=== PATIENT | female | born 1945 | race Asian ===

== ENCOUNTER 2022-01-04 13:32 | Inpatient (IN) | payer MEDICARE, OTHER ==
[~2022-01-04] VITALS: Ht 154.9 cm; Wt 46.5 kg
[2022-01-04] MEDS ORDERED: SODIUM CHLORIDE 0.9% 500 ML IVB ONE (14:15)
[2022-01-04 16:38] LABS: Basophils # (auto) 0.1 10 ^3/uL (0-0.2); Basophils % (auto) 0.9 % (0.0-2.0); Eosinophils # (auto) 0.1 10 ^3/uL (0-0.8); Eosinophils % (auto) 1.8 % (0.0-7.0); Hematocrit 39.1 % (36.0-46.0); Hemoglobin 12.9 g/dL (12.2-16.2); Lymphocytes # (auto) 1.8 10 ^3/uL (0.4-5.4); Lymphocytes % (auto) 21.5 % (10.0-50.0); Mean Corpuscular Hemoglobin 29.9 pg (28.0-32.0); Mean Corpuscular Hgb Conc. 33.1 g/dL (32.0-36.0); Mean Corpuscular Volume 90.2 fL (80.0-100.0); Monocytes # (auto) 0.6 10 ^3/uL (0-1.3); Monocytes % (auto) 7.4 % (0.0-12.0); Neutrophils # (auto) 5.6 10 ^3/uL (1.6-8.6); Neutrophils % (auto) 68.4 % (37.0-80.0); Red Blood Cells 4.33 10^6/uL (4.0-5.20); Red Cell Distribution Width 14.3 % (11.8-14.3); White Blood Cell 8.2 10^3/uL (4.4-10.8)
[2022-01-04 16:51] LABS: INR 0.97 (0.9-1.15); Partial Thromboplastin Time 25.6 sec (23.6-33.0)
[2022-01-04 16:55] LABS: Albumin 3.3 g/dL (3.4-5.0); Calcium 8.8 mg/dL (8.5-10.1)
[2022-01-04 17:03] LABS: BUN/Creatinine Ratio 19.4; Bilirubin, Total 0.3 mg/dL (0.2-1.0); Total Protein 8.1 g/dL (6.4-8.2)
[2022-01-04] MEDS ORDERED: IOHEXOL 300 MG/ML 100ML BOTTLE IJ ONE (17:35)
[2022-01-04] MEDS ORDERED: metroNIDAZOLE 500MG/100ML 100 ML IV ONE (20:15)
[2022-01-04 20:58] LABS: Urine Bacteria NONE SEEN /hpf (None Seen); Urine Blood 2+ /uL (Negative); Urine WBC 5 /hpf (0 - 5)
[2022-01-04 21:00] LABS: Urine Specific Gravity > 1.050 (1.001-1.035)
[2022-01-04] MEDS ORDERED: MORPHINE SULFATE INJECTION 2 MG/ML SYRG IV PRN (23:15)
[2022-01-04] MEDS ORDERED: ONDANSETRON HCL 4 MG/2 ML VIAL IV PRN (23:15)
[2022-01-04] MEDS ORDERED: PANTOPRAZOLE 40 MG/10 ML VIAL INJ IV ONE (23:15)
[2022-01-05 02:35] VITALS: BP 143/56
[2022-01-05] MEDS ORDERED: ENAL20TA8 PO (03:24)
[2022-01-05] MEDS ORDERED: RALO1TAB PO (03:24)
[2022-01-05] MEDS ORDERED: HYDR12.56 PO (03:24)
[2022-01-05 04:55] VITALS: BP 131/71
[2022-01-05] MEDS: metroNIDAZOLE 500MG/100ML 100 ML IV SCH ×3 (05:31→22:39)
[2022-01-05 05:34] LABS: Basophils # (auto) 0 10 ^3/uL (0-0.2); Basophils % (auto) 0.6 % (0.0-2.0); Eosinophils # (auto) 0.2 10 ^3/uL (0-0.8); Eosinophils % (auto) 3.3 % (0.0-7.0); Hematocrit 34.7 % (36.0-46.0); Hemoglobin 11.7 g/dL (12.2-16.2); Lymphocytes # (auto) 1.8 10 ^3/uL (0.4-5.4); Lymphocytes % (auto) 26.6 % (10.0-50.0); Mean Corpuscular Hemoglobin 30.1 pg (28.0-32.0); Mean Corpuscular Hgb Conc. 33.6 g/dL (32.0-36.0); Mean Corpuscular Volume 89.5 fL (80.0-100.0); Monocytes # (auto) 0.6 10 ^3/uL (0-1.3); Monocytes % (auto) 8.8 % (0.0-12.0); Neutrophils # (auto) 4.1 10 ^3/uL (1.6-8.6); Neutrophils % (auto) 60.7 % (37.0-80.0); Nucleated Red Blood Cells % 0.1 %; Red Blood Cells 3.87 10^6/uL (4.0-5.20); Red Cell Distribution Width 14.1 % (11.8-14.3); White Blood Cell 6.7 10^3/uL (4.4-10.8)
[2022-01-05 05:47] LABS: Albumin 2.9 g/dL (3.4-5.0); Calcium 8.3 mg/dL (8.5-10.1); Potassium 3.5 mmol/L (3.5-5.1)
[2022-01-05 05:50] LABS: BUN/Creatinine Ratio 16.7; Bilirubin, Total 0.5 mg/dL (0.2-1.0); Total Protein 6.7 g/dL (6.4-8.2)
[2022-01-05 08:30] VITALS: BP 150/74
[2022-01-05] MEDS: PANTOPRAZOLE 40 MG/10 ML VIAL INJ IV SCH ×2 (09:29→22:04)
[2022-01-05] MEDS: HCTZ 25 MG TAB PO SCH (09:30)
[2022-01-05] MEDS: ENALAPRIL MALEATE 10 MG TAB PO SCH (09:30)
[2022-01-05 12:30] VITALS: BP 120/66
[2022-01-05] MEDS ORDERED: GOLYTELY 4L KIT PO ONE (15:00)
[2022-01-05 16:30] VITALS: BP 124/61
[2022-01-05] MEDS ORDERED: CEFTRIAXONE SODIUM 2 GM in D5W 5% 50 ML IV SCH ×2 (18:00→20:00)
[2022-01-05 22:00] VITALS: BP 151/77
[2022-01-06 05:00] VITALS: BP 144/62
[2022-01-06] MEDS: metroNIDAZOLE 500MG/100ML 100 ML IV SCH (05:43)
[2022-01-06] MEDS ORDERED: SODIUM CHLORIDE LOCK 10 ML ONE (08:12)
[2022-01-06] MEDS ORDERED: LIDOCAINE VISCOUS 2% 15ML UD ONE (08:12)
[2022-01-06] MEDS ORDERED: diphenhdrAMINE HCL 50 MG/1 ML VL ONE (08:12)
[2022-01-06 08:29] VITALS: BP 152/65
[2022-01-06] MEDS: fentaNYL CITRATE 100 MCG/2 ML VL ONE ×3 (08:59→09:09)
[2022-01-06] MEDS: MIDAZOLAM HCL 5 MG/ML-1ML VIAL ONE ×3 (08:59→09:09)
[2022-01-06] MEDS ORDERED: PANTOPRAZOLE 40 MG TAB PO SCH (10:00)
[2022-01-06] MEDS: HCTZ 25 MG TAB PO SCH (11:56)
[2022-01-06] MEDS: ENALAPRIL MALEATE 10 MG TAB PO SCH (11:57)
[2022-01-06 12:16] VITALS: BP 145/71
[2022-01-06] MEDS ORDERED: PANT40TA2 PO (13:22)
[2022-01-06] MEDS ORDERED: LEVO500T31 PO (13:22)
[2022-01-06] MEDS ORDERED: METR500T PO (13:22)
[2022-01-06 16:29] VITALS: BP 120/56
== END 2022-01-06 18:11 | disposition home or self-care (01) | DRG 377 ==
LOC: ER 13:32 → EDBD 13:32 → OVERFLOW 23:04 → EAST 23:39
PROVIDERS: ADMIT Nurse Practitioner; ATTEND Internal Medicine
PROC: 0DJ08ZZ Inspection of Upper Intestinal Tract, Via Natural or Artificial Opening Endoscopic (ICD-10-PCS; principal; 2022-01-06 08:55)
PROC: 0DBE8ZX Excision of Large Intestine, Via Natural or Artificial Opening Endoscopic, Diagnostic (ICD-10-PCS; 2022-01-06 08:55)
DX: K29.71 Gastritis, unspecified, with bleeding (principal); N17.0 Acute kidney failure with tubular necrosis; K55.9 Vascular disorder of intestine, unspecified; Z68.1 Body mass index [BMI] 19.9 or less, adult; D64.9 Anemia, unspecified; E88.09 Other disorders of plasma-protein metabolism, not elsewhere classified; I10 Essential (primary) hypertension; Z20.822 Contact with and (suspected) exposure to COVID-19; Z88.0 Allergy status to penicillin
CPT/HCPCS: 36415; 71045; 74177; 80053; 81001; 85025; 85610; 85730; 86850; 86900; 86901; 93005; 96361; 96365; 96375; C9113; G0378; J0696; J2250; J2405; J3490; J7060

== ENCOUNTER 2023-02-10 11:33 | Inpatient (IN) | payer MEDICARE, OTHER ==
[~2023-02-10] VITALS: Ht 154.9 cm; Wt 46.2 kg
[~2023-02-10 11:33] MED LIST: ENAL1TAB48 PO; HYDR12.59 PO; LEVO500T31 PO; METR500T PO; PANT40TA2 PO; RALO1TAB PO; RALO60TA10 OR; [UNRECOGNIZED DRUG - CODE]
[2023-02-10 11:56] LABS: Basophils # (auto) 0 10 ^3/uL (0-0.2); Basophils % (auto) 0.7 % (0.0-2.0); Eosinophils # (auto) 0.2 10 ^3/uL (0-0.8); Eosinophils % (auto) 2.4 % (0.0-7.0); Hematocrit 37.6 % (36.0-46.0); Hemoglobin 12.6 g/dL (12.2-16.2); Lymphocytes % (auto) 31.5 % (10.0-50.0); Mean Corpuscular Hgb Conc. 33.5 g/dL (32.0-36.0); Mean Corpuscular Volume 89.5 fL (80.0-100.0); Monocytes # (auto) 0.5 10 ^3/uL (0-1.3); Monocytes % (auto) 8.7 % (0.0-12.0); Neutrophils # (auto) 3.6 10 ^3/uL (1.6-8.6); Neutrophils % (auto) 56.7 % (37.0-80.0); Nucleated Red Blood Cells % 0.2 %; Red Cell Distribution Width 14.5 % (11.8-14.3); White Blood Cell 6.3 10^3/uL (4.4-10.8)
[2023-02-10 12:07] LABS: INR 0.91 (0.9-1.15); Partial Thromboplastin Time 27.5 sec (24.6-33.4)
[2023-02-10 12:10] LABS: Albumin 3.5 g/dL (3.4-5.0); BUN/Creatinine Ratio 16.3 (10.0-20.0); Calcium 8.6 mg/dL (8.5-10.1)
[2023-02-10 12:13] LABS: Bilirubin, Total 0.5 mg/dL (0.2-1.0); Total Protein 7.5 g/dL (6.4-8.2)
[2023-02-10 12:16] LABS: Urine Bacteria NONE SEEN /hpf (None Seen); Urine Blood 1+ /uL (Negative); Urine Specific Gravity 1.011 (1.001-1.035); Urine WBC 7 /hpf (0 - 5)
[2023-02-10] MEDS ORDERED: cefTRIAXone 1GM/50ML D5W 50 ML IV ONE (14:45)
[2023-02-10] MEDS ORDERED: MORPHINE SULFATE INJ 2 MG/ml SYRG IV PRN (14:45)
[2023-02-10] MEDS ORDERED: NITROGLYCERIN 0.4 MG SL TAB SL PRN (14:45)
[2023-02-10] MEDS ORDERED: hydrALAZINE HCL 20 MG/ML VL IV PRN (15:00)
[2023-02-10] MEDS: ENALAPRIL MALEATE 10 MG TAB PO SCH (22:20)
[2023-02-10] MEDS: ATORVASTATIN 20 MG TAB PO SCH (22:20)
[2023-02-10 23:29] VITALS: BP 148/86
[2023-02-11 04:57] VITALS: BP 131/77
[2023-02-11 05:33] LABS: Basophils # (auto) 0 10 ^3/uL (0-0.2); Basophils % (auto) 0.6 % (0.0-2.0); Eosinophils # (auto) 0.2 10 ^3/uL (0-0.8); Hematocrit 35.2 % (36.0-46.0); Hemoglobin 11.8 g/dL (12.2-16.2); Lymphocytes # (auto) 1.5 10 ^3/uL (0.4-5.4); Lymphocytes % (auto) 22.6 % (10.0-50.0); Mean Corpuscular Hemoglobin 30.2 pg (28.0-32.0); Mean Corpuscular Hgb Conc. 33.6 g/dL (32.0-36.0); Mean Corpuscular Volume 89.8 fL (80.0-100.0); Monocytes # (auto) 0.7 10 ^3/uL (0-1.3); Neutrophils # (auto) 4.2 10 ^3/uL (1.6-8.6); Neutrophils % (auto) 63.8 % (37.0-80.0); Nucleated Red Blood Cells % 0.1 %; Red Blood Cells 3.91 10^6/uL (4.0-5.20); Red Cell Distribution Width 14.6 % (11.8-14.3); White Blood Cell 6.6 10^3/uL (4.4-10.8)
[2023-02-11 05:49] LABS: Albumin 3.3 g/dL (3.4-5.0); Calcium 8.9 mg/dL (8.5-10.1); Potassium 4.1 mmol/L (3.5-5.1)
[2023-02-11 05:54] LABS: BUN/Creatinine Ratio 17.3 (10.0-20.0); Bilirubin, Total 0.5 mg/dL (0.2-1.0); Total Protein 7.1 g/dL (6.4-8.2)
[2023-02-11 08:00] VITALS: BP 154/79
[2023-02-11 09:00] VITALS: BP 154/79
[2023-02-11] MEDS: cefTRIAXone 1GM/50ML D5W 50 ML IV SCH (09:09)
[2023-02-11] MEDS: PANTOPRAZOLE 40 MG TAB PO SCH (09:14)
[2023-02-11] MEDS: ENALAPRIL MALEATE 10 MG TAB PO SCH ×2 (09:15→21:33)
[2023-02-11] MEDS: ASPirin-EC 81 mg tab PO SCH (09:15)
[2023-02-11] MEDS: ENOXAPARIN SOD 40 MG/0.4 ML SYRINGE SC SCH (09:17)
[2023-02-11] MEDS: RALOXIFENE HCL 60 MG TAB PO SCH (10:01)
[2023-02-11 11:13] LABS: Cholesterol 168 mg/dL (< 200); HDL Cholesterol 72 mg/dL (40-59); LDL Cholesterol 83 mg/dL (< 100); Triglycerides 98 mg/dL (< 150)
[2023-02-11 12:45] VITALS: BP 141/74
[2023-02-11] MEDS: METOPROLOL SUCCINATE XL 50 MG TAB PO SCH (13:06)
[2023-02-11 16:42] VITALS: BP 119/74
[2023-02-11] MEDS: ATORVASTATIN 20 MG TAB PO SCH (21:33)
[2023-02-11 22:00] VITALS: BP 141/76
[2023-02-11] MEDS ORDERED: ACETAMINOPHEN 325 MG TAB PO ONE (22:30)
[2023-02-12 05:00] VITALS: BP 133/66
[2023-02-12] MEDS ORDERED: ADENOSINE 39 MG in GIVE UN-DILUTED 0 ML IV ONE (07:45)
[2023-02-12 09:23] VITALS: BP_SYST 173; BP_SYST 181; BP_DIAS 82; BP_DIAS 86
[2023-02-12] MEDS: RALOXIFENE HCL 60 MG TAB PO SCH (10:00)
[2023-02-12] MEDS: PANTOPRAZOLE 40 MG TAB PO SCH (11:50)
[2023-02-12] MEDS: ENALAPRIL MALEATE 10 MG TAB PO SCH (11:50)
[2023-02-12] MEDS: ASPirin-EC 81 mg tab PO SCH (11:50)
[2023-02-12] MEDS: ENOXAPARIN SOD 40 MG/0.4 ML SYRINGE SC SCH (11:50)
[2023-02-12] MEDS: METOPROLOL SUCCINATE XL 50 MG TAB PO SCH (11:50)
[2023-02-12] MEDS: cefTRIAXone 1GM/50ML D5W 50 ML IV SCH (11:51)
[2023-02-12 13:00] VITALS: BP 165/71
== END 2023-02-12 16:40 | disposition home or self-care (01) | DRG 391 ==
LOC: ER 11:33 → TELE 14:45 → TELE-WESTW 22:43
PROVIDERS: ADMIT Nurse Practitioner Family; ATTEND Internal Medicine
DX: K21.9 Gastro-esophageal reflux disease without esophagitis (principal); I50.31 Acute diastolic (congestive) heart failure; N30.00 Acute cystitis without hematuria; M81.0 Age-related osteoporosis without current pathological fracture; R07.81 Pleurodynia; I25.10 Atherosclerotic heart disease of native coronary artery without angina pectoris; I11.0 Hypertensive heart disease with heart failure; R07.89 Other chest pain; Z82.49 Family history of ischemic heart disease and other diseases of the circulatory system; Z88.0 Allergy status to penicillin
CPT/HCPCS: 36415; 71045; 78452; 80053; 80061; 81001; 83036; 83735; 83880; 84484; 85025; 85610; 85730; 87086; 93005; 93017; 93306; G0378; J0153; J0696

== ENCOUNTER 2025-03-07 12:36 | Outpatient (CLI) | payer MEDICARE, OTHER ==
[~2025-03-07 12:36] MED LIST changes: -HYDR12.59 PO; -LEVO500T31 PO; -METR500T PO; -[UNRECOGNIZED DRUG - CODE]
[2025-03-07 12:58] LABS: Urine Protein, UAD Negative (Negative)
== END 2025-03-07 17:00 | disposition home or self-care (01) ==
LOC: LAB 12:36
PROVIDERS: ATTEND Internal Medicine
DX: N39.0 Urinary tract infection, site not specified (principal); R30.0 Dysuria
CPT/HCPCS: 81001; 87086; 87088; 87186

== ENCOUNTER 2025-04-23 10:54 | Emergency (ER) | payer MEDICARE, OTHER ==
[~2025-04-23] VITALS: Ht 157.5 cm; Wt 40.1 kg
[2025-04-23 10:55] VITALS: BP 164/88; PULSE 87; RESP 19; TEMP 98.4; O2SAT 97
--- NOTE | 2025-04-23 13:16 | ED.PDOC ---
General HPI Comments 79 year old female presents to the ED with a chief complaint of dysuria onset 3 weeks. She has been experiencing dysuria for the past 3 weeks, completed antibiotics course. She noticed dysuria with burning sensation and foul odor urine has not improved. Denies fever, chills, headache, dizziness, nausea, vomiting, diarrhea, hematuria. PMHx HTN. No other symptoms or modifying factors present at this time. Chief Complaint: Urinary Time Seen by MD: 13:20 Primary Care Provider: KAMRAN Reviewed notes: Medications, Allergies Allergies: Coded Allergies: Penicillins (Verified Allergy, Unknown, 01/06/22) Uncoded Allergies: PENICILLEN (Adverse Reaction, Intermediate, LIPS GET NUMB AND PERSPIRE, 12/11/22) Home Meds Active Scripts Pantoprazole Sodium Sesquihydr (Protonix) 40 Mg Tab, 40 MG PO DAILY for 30 Days, #30 TAB Prov:KYRIE MOORE MD 01/06/22 Reported Medications Raloxifene Hydrochloride (Raloxifene Hydrochloride) 60 Mg Tab, 60 MG PO DAILY, TAB 01/05/22 Enalapril Maleate (Enalapril Maleate) 20 Mg Tab, 1 TAB PO BID, #180 TAB 1 Refill 01/05/22 Raloxifene Hydrochloride (Evista) 60 Mg Tab, 60 MG OR HS 10/06/10 Information Source: Patient Mode of Arrival: Ambulatory Severity: Moderate Timing: Weeks Duration: Since onset Prehospital treatment: Other (antibiotics) Onset: Spontaneous Symptoms: Dysuria, Other History of: UTI Modifying factors: None associated signs and symptoms: Dysuria Past Medical History PAST MEDICAL HISTORY: HTN Surgical History: Denies all surgeries LABOR CUSTODIAN History: Denies all LABOR CUSTODIAN Hx Family History Family History: Reviewed,noncontributory to illness Social History Smoker: Non-Smoker Alcohol: Occasionally Drugs: Denies Drug Use Lives In: Home Constitutional: denies: chills, diaphoresis, fatigue, fever, malaise, sweats, weakness, others EENTM: denies: blurred vision, double vision, ear bleeding, ear discharge, ear drainage, ear pain, ear ringing, eye pain, eye redness, hearing loss, mouth pain, mouth swelling, nasal discharge, nose bleeding, nose congestion, nose pain, photophobia, tearing, throat pain, throat swelling, voice changes, others Respiratory: denies: cough, hemoptysis, orthopnea, SOB at rest, shortness of breath, SOB with excertion, stridor, wheezing, others Cardiovascular: denies: chest pain, dizzy spells, diaphoresis, Dyspnea on exertion, edema, irregular heart beat, left arm pain, lightheadedness, palpitations, PND, syncope, others Gastrointestinal: denies: abdomen distended, abdominal pain, blood streaked bowels, constipated, diarrhea, dysphagia, difficulty swallowing, hematemesis, melena, nausea, poor appetite, poor fluid intake, rectal bleeding, rectal pain, vomiting, others Genitourinary: reports: dysuria, others (foul odor); denies: abnormal vagina bleeding, burning, dyspareunia, flank pain, frequency, hematuria, incontinence, pain, , vagina discharge, urgency Neurological: denies: dizziness, fainting, headache, left sided numbness, left sided weakness, numbness, paresthesia, pre-existing deficit, right sided numbness, right sided weakness, seizure, speech problems, tingling, tremors, weakness, others Musculoskeletal: denies: back pain, gout, joint pain, joint swelling, muscle pain, muscle stiffness, neck pain, others Integumetry: denies: bruises, change in color, change in hair/nails, dryness, laceration, lesions, lumps, rash, wounds, others Allergic/Immunocompromised: denies: Difficulty Healing, Frequent Infections, Hives, Itching, others Hematologic/Lymphatic: denies: anemia, blood clots, easy bleeding, easy bruising, swollen glands, others Endocrine: denies: excessive hunger, excessive sweating, excessive thirst, excessive urination, flushing, intolerance to cold, intolerance to heat, unexplained weight gain, unexplained weight loss, others Psychiatric: denies: anxiety, bipolar disorder, depression, hopeless, panic disorder, schizophrenia, sleepless, suicidal, others All Other Systems: Reviewed and Negative Physical Exam General Appearance: No Apparent Distress, Thin HEENT: Normal ENT Inspection, PERRL/EOMI, Pharynx Normal, TMs Normal Neck: Full Range of Motion, Non-Tender, Normal, Normal Inspection Respiratory: Chest Non-Tender, Lungs Clear, No Accessory Muscle Use, No Respiratory Distress, Normal Breath Sounds Cardiovascular: No Edema, No JVD, No Murmur, No Gallop, Normal Peripheral Pulses, Regular Rate/Rhythm Breast Exam: Deferred Gastrointestinal: No Organomegaly, Non Tender, No Pulsatile Mass, Normal Bowel Sounds, Soft Genitalia: Deferred Pelvic: Deferred Rectal: Deferred Extremities: No calf tenderness, Normal capillary refill, Normal inspection, Normal range of motion, Non-tender, No pedal edema Musculoskeletal : Apperance: Normal Neurologic: Alert, 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 Was a procedure done?: No Differential Diagnosis Kidney stone (Female): N/A Kidney stone (Male): N/A Penile/Scrotal: N/A Urinary Problem (Male): N/A Urinary Problem (Female): UTI X-Ray, Labs, Meds, VS Vital Signs Date Time Temp Pulse Resp B/P (MAP) Pulse Ox O2 Delivery O2 Flow Rate FiO2 04/23/25 10:55 98.4 87 19 164/88 97 98.4 Lab Test 04/23/25 13:20 Range/Units Urine Color Colorless Yellow Urine Clarity Clear Clear Urine pH 5.5 5.0-9.0 Urine Specific [place] 1.006 1.001-1.035 Urine Protein Negative Negative Urine Ketones Negative Negative Urine Blood 1+ H Negative /uL Urine Nitrite Negative Negative Urine Bilirubin Negative Negative Urine Urobilinogen Normal Negative mg/dL Urine Leukocyte Esterase 2+ Negative /uL Urine RBC 3 0 - 4 /hpf Urine WBC Clumps Present None Seen /hpf Urine Microscopic WBC 16 H 0-5 /HPF Urine Squamous Epithelial Cells Few <5 /hpf Urine Bacteria Few H None Seen /hpf Urine Yeast (Budding) Occasional None Seen /hpf Urine Glucose Normal Normal mg/dL X-Ray, Labs, Meds, VS Comment Patient came to the [facility] complaining of urinary sent of the burning sensation going often for the past three weeks on and off she has a history of hypertension she does not drink occasionally alcohol Urine shows 2+ leukocyte esterase 1+ blood 1+ bacteria and some yeast Patient will be discharged to follow up with her PCP Time of 1ST Reevaluation: 13:50 Reevaluation 1ST: Unchanged Patient Education/Counseling: Diagnosis, Treatment, Prognosis Family Education/Counseling: No Family Present SEPSIS Sepsis Screen Date sepsis recognized/suspect: Apr 23, 2025 Time Sepsis recognized/suspect: 1055 Recent Procedure: No On Antibiotic Therapy: No Respiratory Rate >20: No Heart Rate >90: No Temp<36 C (96.8 F) or >38.3 C: No SBP <90 or MAP <65 mmHG: No New Acute Mental Status Change: No Is the patient on CPAP, BIPAP,: No Vital Signs Date Time Temp Pulse Resp B/P (MAP) Pulse Ox O2 Delivery O2 Flow Rate FiO2 04/23/25 10:55 98.4 87 19 164/88 97 98.4 Departure 1 Departure Time of Disposition: 14:49 Impression: Primary Impression: UTI (urinary tract infection) Qualified Codes: N30.01 - Acute cystitis with hematuria Additional Impression: Yeast infection involving the vagina and surrounding area Disposition: HOME / SELF CARE / HOMELESS Condition: Fair Additional Instructions: Follow up with your PCP e-Prescriptions Fluconazole (Diflucan) 200 Mg Tab 1 TAB PO DAILY for 3 Days, #3 TAB Prov: MARQUIS GALEANO MD 04/23/25 Ciprofloxacin Hcl (Cipro) 500 Mg Tab 1 TAB PO BID for 10 Days, #20 TAB Prov: MARQUIS GALEANO MD 04/23/25 Discharged With: Self Critical Care Note Critical Care Time?: No Stability Stability form required: No Heart Score Heart Score: Heart Score Response (Comments) Value History N/A 0 EKG N/A 0 Age >65 2 Risk Factors 1 or 2 risk factors 1 Troponin N/A 0 Total 3 I personally scribed for MARQUIS GALEANO MD ([email or web address]) on 04/23/25 at 13:15. Electronically submitted by Ranjana Molina ([email or web address]). MARQUIS GALEANO MD Apr 23, 2025 13:15
[2025-04-23 13:47] LABS: Urine Budding Yeast OCCASIONAL /hpf (None Seen); Urine Protein, UAD Negative (Negative); Urine WBC Clumps PRESENT /hpf (None Seen)
[2025-04-23] MEDS ORDERED: FLUC200T PO (14:51)
[2025-04-23] MEDS ORDERED: CIPR-173 PO (14:51)
== END 2025-04-23 14:59 | disposition home or self-care (01) ==
LOC: ER 10:54
DX: N39.0 Urinary tract infection, site not specified (principal); B37.31 Acute candidiasis of vulva and vagina; I10 Essential (primary) hypertension; F10.90 Alcohol use, unspecified, uncomplicated; Z79.899 Other long term (current) drug therapy; Z79.810 Long term (current) use of selective estrogen receptor modulators (SERMs); Z87.440 Personal history of urinary (tract) infections; Z88.0 Allergy status to penicillin; Y90.9 Presence of alcohol in blood, level not specified
CPT/HCPCS: 81001

== ENCOUNTER → 2025-04-30 | Outpatient (CLI) | payer MEDICARE, OTHER ==
[~2025-04-30] MED LIST changes: +CIPR-173 PO; +FLUC200T PO
[2025-04-30 10:16] LABS: Hematocrit 36.8 % (36.0-46.0); Hemoglobin 12.3 g/dL (12.2-16.2); Mean Corpuscular Hemoglobin 30.8 pg (28.0-32.0); Mean Corpuscular Volume 92.0 fL (80.0-100.0); Nucleated Red Blood Cells % 0.0 %
[2025-04-30 10:31] LABS: Urine Budding Yeast OCCASIONAL /hpf (None Seen); Urine Protein, UAD Negative (Negative)
[2025-04-30 10:56] LABS: Alanine Aminotransferase 18 U/L (7-40); Albumin 3.9 g/dL (3.2-4.8); Alkaline Phosphatase 58 U/L (46-116); Anion Gap 8 (5-15); BUN/Creatinine Ratio 14.0 (10.0-20.0); Bilirubin, Total 0.5 mg/dL (0.2-1.0); Blood Urea Nitrogen 13 mg/dL (9-23); Calcium 9.1 mg/dL (8.7-10.4); Carbon Dioxide 28 mmol/L (20-31); Chloride 107 mmol/L (98-107); Cholesterol 146 mg/dL (< 200); Glucose 89 mg/dL (74-106); Potassium 4.4 mmol/L (3.5-5.1); Sodium 143 mmol/L (136-145); Total Protein 7.4 g/dL (5.7-8.2); Triglycerides 110 mg/dL (< 150)
[2025-04-30 11:00] LABS: HDL Cholesterol 72 mg/dL (40-59)
== END | disposition home or self-care (01) ==
LOC: LAB 09:27
PROVIDERS: ATTEND Internal Medicine
DX: I12.9 Hypertensive chronic kidney disease with stage 1 through stage 4 chronic kidney disease, or unspecified chronic kidney disease (principal); N18.2 Chronic kidney disease, stage 2 (mild); N39.0 Urinary tract infection, site not specified; Z00.01 Encounter for general adult medical examination with abnormal findings; M81.0 Age-related osteoporosis without current pathological fracture; E55.9 Vitamin D deficiency, unspecified; Z86.2 Personal history of diseases of the blood and blood-forming organs and certain disorders involving the immune mechanism
CPT/HCPCS: 36415; 80053; 80061; 81001; 82306; 83036; 84439; 84443; 85025